=== PATIENT | male | born 1955 | race Caucasian/White ===

== ENCOUNTER → 2021-10-06 12:49 | Outpatient (BNVA) | payer SELFPAY | PROVIDERS: Visit Provider Internal Medicine | DX: Z02.79 Encounter for issue of other medical certificate (principal) ==

== ENCOUNTER → 2022-09-13 08:58 | Outpatient (BNVA) | payer SELFPAY | PROVIDERS: Visit Provider Physician Assistant Medical | DX: Z02.79 Encounter for issue of other medical certificate (principal) ==

== ENCOUNTER → 2023-01-23 08:05 | Outpatient (AMB) | payer MEDICARE, SELFPAY ==
--- NOTE | 2023-01-23 08:23 | MHC.PC.OV ---
Vital Signs 01/23/23 08:26 Height 5 ft 10 in Weight 281 lb 2 oz BMI 40.3 BP 126/70 Blood Pressure Location Rt brachial Position Sitting Respiration 13 Pulse 90 Pulse Source Pulse Oximeter Pulse Oximetry (%) 96 Oxygen Delivery Method Room Air Intake Visit Reasons: back pain Intake Note: Patient reports mid to low back pain x3 weeks. Patient denies previous injuries. Patient reports his found a scab like spot on his back, pulled it off and it came off whole- about 1/2 inch in length with something swimming in the cone. Patient reports the back pain has persisted since. Patient reports his primary care doctor is Dr. Fowler. Optical Fabricator Required: No Accompanied by: Self / Same As Patient Allergies Iodinated Contrast Media Allergy (Severe, Verified 01/23/23 08:30) Cough lisinopril Allergy (Severe, Verified 01/23/23 08:30) Cough Tobacco use date assessed: 01/23/23 Fall risk assessment: 1 Fall in past year Last assessed Fall Risk: 01/23/23 HPI back pain HPI Details 67 y/o male presents with complaints of back pain. Patient reports mid to low back pain x3 weeks. Patient denies previous injuries. Patient reports his found a scab like spot on his back, pulled it off and it came off whole- about 1/2 inch in length with something swimming in the cone. Patient reports the back pain has persisted since. 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[employer] Current occupational exposures/hazards: No Cognitive needs: No Hearing needs: No Vision needs: No Review of Systems Const Denies chills, Denies fatigue, Denies fever(s), Denies headache(s) and Denies weakness ENT Denies dizziness and Denies headache(s) Card Denies dyspnea Resp Denies cough, Denies dyspnea, Denies wheezing and Denies other (shortness of breath) Musc Reports back pain, Denies numbness and Denies tingling Neuro Denies dizziness, Denies headache(s), Denies numbness, Denies tingling and Denies weakness Psych Denies anxiety and Denies depression Endo Denies fatigue Aller/Immun Denies wheezing Physical exam (Primary Care) Vital Signs: Last Vital Signs Pulse 90 01/23/23 08:26 Resp 13 01/23/23 08:26 BP 126/70 01/23/23 08:26 Pulse Ox 96 01/23/23 08:26 Oxygen Delivery Method Room Air 01/23/23 08:26 BMI result Body Mass Index 40.3 Tobacco/Smoking Status: Tobacco use Status Tobacco use date assessed 01/23/23 01/23/23 08:36 Patient Tobacco Use Status Never used Tobacco 01/23/23 08:36 e-Cigarette/Vaping Use Never Used 01/23/23 08:36 Const General: well developed; No acute distress Nutritional Appearance: well nourished Orientation/consciousness: patient oriented x3 HENMT Head: Yes normocephalic and Yes atraumatic Eyes General: appearance normal, both eyes and all related structures Pupils: Equal, round and reactive pupils present EOM: EOMs intact bilaterally Resp Effort & Inspection: normal respiratory effort Neuro General: patient oriented x3 and gait normal Cranial nerves: Yes Equal, round and reactive pupils present Psych Affect: normal affect Assessment and Plan Assessment & Plan (1) Back pain: Code(s): M54.9 - Dorsalgia, unspecified Plan: He?is?flank?and?pelvic?crest?pain. Reproducible?with?palpation?and?range?of?motion. Appears?to?be?muscle?strain He?has?been?using?ibuprofen?twice?a?day.??Encouraged?him?to?use?ibuprofen?3?times?a?day?and?will?give?him?a?script?for?muscle?relaxant Advised?ice?and?heat Advised?good?body?mechanics?and?relative?rest?with?maintainence of?current?range?of?motion If?not?improving?he?will?let?me?know. Would?image?and?refer?for?physical?therapy?or?Ortho. (2) Skin lesion: Code(s): L98.9 - Disorder of the skin and subcutaneous tissue, unspecified Plan: Patient?notes?he?had?some?type?of?skin?lesion?or?scab?on?his?back. No?rash?and?no?evidence?of?lesion?at?this?time. Will?check?labs?including?CBC,?CMP?and?urinalysis Can?call?patient?if?relevant?action?is?required.??Otherwise?he?can?check?this?on?the?patient?portal. Orders: Orders Comprehensive Met. Panel Today M54.9 - Dorsalgia, unspecified CRP High Sensitivity Today M54.9 - Dorsalgia, unspecified Complete Blood Count Auto Diff Today M54.9 - Dorsalgia, unspecified, Z00.00 - Encounter for general adult medical examination without abnormal findings Erythrocyte Sedimentation Rate Today M54.9 - Dorsalgia, unspecified UA and rflx microscopic Today M54.9 - Dorsalgia, unspecified, Z00.00 - Encounter for general adult medical examination without abnormal findings Medications: New cyclobenzaprine 10 mg PO Q12H PRN 20 tabs 0RF muscle spasm 10 days M54.9 - Dorsalgia, unspecified Coding Level of Care Code Est Pt Level 3 (29794) Diagnoses Back pain M54.9 Skin lesion L98.9
[2023-01-23 08:26] VITALS: BP 126/70; PULSE 90; RESP 13; O2SAT 96; BMI 40.3
== END ==
PROVIDERS: Visit Provider Family Medicine
DX: M54.9 Dorsalgia, unspecified (principal); L98.9 Disorder of the skin and subcutaneous tissue, unspecified
CPT/HCPCS: 99213

== ENCOUNTER 2023-01-23 08:56 | Outpatient (REF) | payer MEDICARE, SELFPAY ==
[2023-01-23 11:34] LABS: Appearance Urine Turbid; Color Urine Yellow; Glucose Urine UA 250 mg/dL (Negative); Leukocyte Esterase Urine Trace (Negative); Nitrite Urine Negative (Negative); PH 5.5 (5.0-9.0); UMIC TRIGGER UA YES; Urine Blood Negative (Negative); Urine Ketones Negative (Negative); Urine Protein 30 (1+) mg/dL (Neg-Trace)
[2023-01-23 11:35] LABS: MANUAL DIFF FLAG NO
[2023-01-23 11:39] LABS: Bacteria Urine None Seen (None Seen); RBC Urine 0-2 /HPF (0-2); Squamous Epithelial Cell Urine 0-2 /HPF (0-2); WBC Urine 0-5 /HPF (0-5)
[2023-01-23 11:46] LABS: Basophils Absolute Auto 0.1 X10*3/uL (0.0-0.2); Basophils Percent Auto 0.8 % (0-2); Eosinophils Absolute Auto 0.2 X10*3/uL (0.0-0.4); Hemoglobin 13.3 g/dl (14.0-18.0); Imm Gran Abs Auto 0.05 X10*3/uL (0.00-0.03); Imm Gran Pct Auto 0.5 % (0.0-0.4); Lymphocytes Absolute Auto 2.1 X10*3/uL (1.2-4.9); Mean Corpuscular HGB Conc 31.7 g/dl (31.0-36.0); Mean Corpuscular Hemoglobin 26.3 pg (27.0-33.0); Monocytes Absolute Auto 0.6 X10*3/uL (0.1-1.2); Monocytes Percent Auto 6.1 % (2-11); Neutrophils Absolute Auto 6.8 x10*3/uL (2.0-8.3); Neutrophils Percent Auto 69.6 % (45-73); Platelet Count 374 X10*3/uL (160-400); Red Blood Count 5.06 X10*6/uL (4.60-5.80); White Blood Count 9.8 X10*3/uL (4.8-10.8)
[2023-01-23 12:08] LABS: Alanine Aminotransferase 21 U/L (0-40); Albumin Level 4.3 g/dL (3.5-5.0); Alkaline Phosphatase 121 U/L (39-117); Anion Gap 12 (12-20); Aspartate Amino Transferase 18 U/L (5-37); Bilirubin Total 0.5 mg/dL (0.0-1.0); Blood Urea Nitrogen 23 mg/dL (9-16); Calcium 9.6 mg/dL (8.4-10.2); Carbon Dioxide 27 mmol/L (22-29); Chloride 105 mmol/L (96-108); Estimated Glomerular Filt Rate > 60; Glucose Random 122 mg/dL (60-115); Potassium 3.4 mmol/L (3.3-5.1); Sodium 141 mmol/L (135-145); Total Protein 8.1 g/dL (6.5-8.0)
[2023-01-23 12:24] LABS: Erythrocyte Sedimentation Rate 30 MM/HR (0-15)
[2023-01-24 15:34] LABS: CRP High Sensitivity >10.0 mg/L
== END 2023-01-23 08:57 | disposition home or self-care (01) ==
LOC: HO.WFDLDS 08:56
PROVIDERS: Visit Provider Family Medicine
DX: Z00.00 Encounter for general adult medical examination without abnormal findings (principal); M54.9 Dorsalgia, unspecified
CPT/HCPCS: 36415; 80053; 81001; 85025; 85652; 86141

== ENCOUNTER → 2023-09-09 13:17 | Outpatient (BNVA) | payer SELFPAY | PROVIDERS: Visit Provider Physician Assistant Medical | DX: Z02.79 Encounter for issue of other medical certificate (principal) ==

== ENCOUNTER → 2024-08-20 12:56 | Outpatient (BNVA) | payer SELFPAY | PROVIDERS: Visit Provider Physician Assistant | DX: Z02.79 Encounter for issue of other medical certificate (principal) ==